=== PATIENT | male | born 1960 | race Caucasian/White ===

== ENCOUNTER 2017-03-21 02:00 | Emergency (ER) | payer BC, OTHER ==
[~2017-03-21] VITALS: Ht 175.3 cm; Wt 65.9 kg
[~2017-03-21 02:00] MED LIST: CHLO.12%30 SSP; CLIN150 PO; IBUP600T26 PO
[2017-03-21 02:05] VITALS: BP 143/78; PULSE 100; RESP 18; TEMP 98.3; O2SAT 98
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
== END 2017-03-21 03:13 ==
LOC: NEPE 02:00
DX: S00.81XA Abrasion of other part of head, initial encounter (principal); V89.2XXA Person injured in unspecified motor-vehicle accident, traffic, initial encounter
CPT/HCPCS: 99283